=== PATIENT | female | born 1945 | race Caucasian/White ===

== ENCOUNTER 2019-02-07 12:44 | Emergency (ER) | payer OTHER ==
[2019-02-07 12:55] VITALS: BMI 28.3
--- NOTE | 2019-02-07 13:00 | PDOC ---
History of Present Illness - General Chief Complaint: Injury Stated Complaint: FALL Time Seen by Provider: 02/07/19 13:00 History Source: Patient Exam Limitations: No Limitations - History of Present Illness Initial Comments: 02/07/19 13:22 73 year old female with no PMH presented to ED for laceration to head after fall today. She stated she was sitting in a chair reading a bill, when her chair gave out and she fell backwards, hitting her head. She denied LOC, vomiting. She stated she got herself off of the ground. She stated she came to the ED because she could not stop the bleeding. She denied numbness, weakness, tingling, chest pain, shortness of breath, palpitations, visual changes or any other complaints. Allergies: NKDA Last tetanus unknown. Past History - Past Medical History Allergies/Adverse Reactions: Allergies Allergy/AdvReac Type Severity Reaction Status Date / Time No Known Allergies Allergy Verified 02/07/19 12:55 COPD: No - Suicide/Smoking/Psychosocial Hx Smoking History: Unknown if ever smoked Have you smoked in the past 12 months: No Information on smoking cessation initiated: No Hx Alcohol Use: No Drug/Substance Use Hx: No Review of Systems - Review of Systems Able to Perform ROS?: Yes Comments:: 02/07/19 13:23 General: denied fever, chills, generalized weakness. HEENT: denied sore throat, rhinorrhea, ear pain. Heart: denied chest pain, palpitations, syncope, diaphoresis. Respiratory: denied shortness of breath, cough, sputum production, hemoptysis. Abdomen: denied abdominal pain, nausea, vomiting, diarrhea, constipation, blood in stool. : denied dysuria, increased urinary frequency, hematuria, urinary incontinence , flank pain. Back: denied back pain. Musculoskeletal: denied joint pain, muscle pain, joint swelling. Neurological: admitted to headache. denied dizziness, numbness, tingling, weakness. Skin: admitted to laceration. denied rash, abrasion. *Physical Exam - Vital Signs Last Vital Signs Temp Pulse Resp BP Pulse Ox 98.0 F 84 16 168/92 100 02/07/19 12:52 02/07/19 12:52 02/07/19 12:52 02/07/19 12:52 02/07/19 12:52 - Physical Exam Comments: 02/07/19 13:24 Constitutional: Well-nourished, Well-developed, appearing stated age. pt was initially standing when I first entered the room. HEENT: head is normocephalic. hematoma to right parietal area with 1 cm lac with pulsatile blood flow. EOMI. PERRLA. Neck: supple. Full ROM. no midline C-spine tenderness to palpation. no paraspinal tenderness to palpation. Heart: regular rhythm. no murmurs, rubs or gallops. Lungs: clear to auscultation bilaterally. no crackles, rhonchi or wheezing. no stridor. Abdomen: soft, nontender. normal bowel sounds. no rebound, guarding, masses. Extremities: peripheral pulses intact. no lower extremity edema. Back: no midline t-spine or L-spine tenderness to palpation or step offs. no paraspinal tenderness. no low back tenderness. Hips: lower extremities equal in length, no hip tenderness bilaterally, no external rotation bilaterally. normal gait. Neurological: alert. oriented x3. CN2-12 intact. 5/5 strength all extremities. normal ankle plantar flexion. full sensation all extremities and bilateral face. no ataxia. gait normal. Psych: awake, alert, oriented x3. follows commands. answers questions appropriately. Procedures - Laceration/Wound Repair Head Wound Length: to 2.5 cm Wound Explored: clean Wound's Depth, Shape: superficial Irrigated w/ Saline: Yes Betadine Prep: No Wound Repaired With: [place] Number of Sutures: 3 Sterile Dressing Applied: Yes (bacitracin over wound, gauze over top, alice wrap to hold gauze in place) ED Treatment Course - LABORATORY CBC & Chemistry Diagram: 02/07/19 13:00 02/07/19 13:00 Medical Decision Making - Medical Decision Making 02/07/19 13:28 73 year old female with no PMH presented to ED for laceration of right parietal head with hematoma s/p mechanical fall. Pt was seen at urgent care and sent to ED. Initial Vital Signs Temp Pulse Resp BP Pulse Ox 98.0 F 84 16 168/92 100 02/07/19 12:52 02/07/19 12:52 02/07/19 12:52 02/07/19 12:52 02/07/19 12:52 Afebrile. No tachycardia. No tachypnea. Mild hypertension. No hypoxia on room air. Labs ordered: CBC, CMP, MAg, Troponin, UA/UC Imaging ordered: CT head, CT cervical spine Medications ordered: Tylenol IV EKG performed at 02/07/19 13:32 CBC WBC 6.7 K/mm3 (4.0-10.0) 02/07/19 13:00 RBC 5.24 M/mm3 (3.60-5.2) H 02/07/19 13:00 Hgb 14.7 GM/dL (10.7-15.3) 02/07/19 13:00 Hct 44.1 % (32.4-45.2) 02/07/19 13:00 MCV 84.2 fl (80-96) 02/07/19 13:00 MCH 28.0 pg (25.7-33.7) 02/07/19 13:00 MCHC 33.3 g/dl (32.0-36.0) 02/07/19 13:00 RDW 13.5 % (11.6-15.6) 02/07/19 13:00 Plt Count 221 K/MM3 (134-434) 02/07/19 13:00 MPV 8.4 fl (7.5-11.1) 02/07/19 13:00 Absolute Neuts (auto) 4.2 K/mm3 (1.5-8.0) 02/07/19 13:00 Neutrophils % 62.8 % (42.8-82.8) 02/07/19 13:00 Lymphocytes % 28.7 % (8-40) 02/07/19 13:00 Monocytes % 7.6 % (3.8-10.2) 02/07/19 13:00 Eosinophils % 0.5 % (0-4.5) 02/07/19 13:00 Basophils % 0.4 % (0-2.0) 02/07/19 13:00 Nucleated RBC % 0 % (0-0) 02/07/19 13:00 No leukocytosis. No anemia. 02/07/19 13:54 Urine Test Results Urine Color Yellow 02/07/19 13:00 Urine Appearance Clear 02/07/19 13:00 Urine pH 6.0 (5.0-8.0) 02/07/19 13:00 Ur Specific [place] 1.012 (1.010-1.035) 02/07/19 13:00 Urine Protein Negative (NEGATIVE) 02/07/19 13:00 Urine Glucose (UA) Negative (NEGATIVE) 02/07/19 13:00 Urine Ketones Negative (NEGATIVE) 02/07/19 13:00 Urine Blood Negative (NEGATIVE) 02/07/19 13:00 Urine Nitrite Negative (NEGATIVE) 02/07/19 13:00 Urine Bilirubin Negative (NEGATIVE) 02/07/19 13:00 Ur Leukocyte Esterase Negative (NEGATIVE) 02/07/19 13:00 Negative for UTI. 02/07/19 14:53 CMP Sodium 139 mmol/L (136-145) 02/07/19 13:00 Potassium 3.9 mmol/L (3.5-5.1) 02/07/19 13:00 Chloride 105 mmol/L (98-107) 02/07/19 13:00 Carbon Dioxide 29 mmol/L (21-32) 02/07/19 13:00 Anion Gap 6 MMOL/L (8-16) L 02/07/19 13:00 BUN 18 mg/dL (7-18) 02/07/19 13:00 Creatinine 0.8 mg/dL (0.55-1.3) 02/07/19 13:00 Creat Clearance w eGFR 70.31 (>60) 02/07/19 13:00 Random Glucose 107 mg/dL (74-106) H 02/07/19 13:00 Calcium 9.0 mg/dL (8.5-10.1) 02/07/19 13:00 Magnesium 2.2 mg/dL (1.8-2.4) 02/07/19 13:00 Total Bilirubin 0.3 mg/dL (0.2-1) 02/07/19 13:00 AST 20 U/L (15-37) 02/07/19 13:00 ALT 18 U/L (13-61) 02/07/19 13:00 Alkaline Phosphatase 93 U/L (45-117) 02/07/19 13:00 Troponin I 0.02 ng/ml (0.00-0.05) 02/07/19 13:00 Total Protein 7.2 g/dl (6.4-8.2) 02/07/19 13:00 Albumin 3.9 g/dl (3.4-5.0) 02/07/19 13:00 No electrolyte abnormalities. No ALTAF. No transaminitis. Normal troponin. CT cervical spine report: degenerative changes. no fracture/subluxation. CT head noncontrast report: mild volume loss. ventricular dilation. no mass lesion, gross acute infarct, or intracranial hemorrhage. no shift of hte midline structures. CXR report: no acute pathology 02/07/19 15:51 Wound was repaired with 3 ashwin after irrigation with sterile water under pressure. Pt tolerated the procedure well. Wound was covered with bacitracin, gauze, alice wrap. See procedure note. Tetanus shot given. Pt neurologically intact, alert and oriented x3, and is requesting to go home. Pt stated she will have someone stay with her tonight to check on her every 3-4 hours. Pt informed to follow up with PCP and return for wound check in 7 days. Pt informed of return precautions. Pt discharged. *DC/Admit/Observation/Transfer Diagnosis at time of Disposition: Fall, Scalp laceration, Head injury - Discharge Dispostion Disposition: HOME Condition at time of disposition: Improved Decision to Admit order: No - Referrals Referrals: Ki Cook [Primary Care Provider] - - Patient Instructions Printed Discharge Instructions: DI for Laceration Repair, DI for Closed Head Injury Additional Instructions: You were seen today for a fall. Your lab work was normal. Your urine analysis was normal, there was no urinary tract infection. Your Head CT was normal, there was no bleeding in the brain. Your Neck CT was normal, there was no fractures. Your Chest X-ray was normal. Keep the wound 100% clean and dry for 24-48 hours. Wear a shower cap when you shower. After that period change the dressing daily" apply bacitracin or neosporin and then cover with gauze and an alice wrap to hold the gauze in place. Take Tylenol over the counter for your pain. Take as advised on label. Follow up with your primary care doctor in 1-2 days. Bring all paperwork given to you today to your appointment. Follow up with your primary care doctor or in our Emergency Department (either here or at [facility]) for a wound check in 7-10 days. Have someone stay with you tonight to check on you every 3-4 hours. Signs they should be looking for are: difficulty to arouse, vomiting, weakness, numbness, tingling. Return to the Emergency Department for fever, vomiting, weakness, numbness, tingling, change in mental status, neck stiffness, chest pain, shortness of breath, changes to your vision, or any other new, worsening or concerning symptoms. - Post Discharge Activity
[2019-02-07] MEDS ORDERED: ACETAMINOPHEN 1000 MG/100 ML VIAL (NON FORMULARY) IVPB ONE (13:06)
[2019-02-07] MEDS ORDERED: ACETAMINOPHEN INJECTION 100 ML IVPB ONE (13:16)
[2019-02-07 13:26] LABS: BASO % 0.4 % (0-2.0); EOS % 0.5 % (0-4.5); HEMATOCRIT 44.1 % (32.4-45.2); HEMOGLOBIN 14.7 GM/dL (10.7-15.3); LYMPH % 28.7 % (8-40); MCHC 33.3 g/dl (32.0-36.0); MEAN CELL VOLUME 84.2 fl (80-96); MEAN PLT VOLUME 8.4 fl (7.5-11.1); MONO % 7.6 % (3.8-10.2); NEUT % 62.8 % (42.8-82.8); PLATELET COUNT 221 K/MM3 (134-434); RBC 5.24 M/mm3 (3.60-5.2); RDW 13.5 % (11.6-15.6); WHITE BLOOD COUNT 6.7 K/mm3 (4.0-10.0)
[2019-02-07 13:35] LABS: URINE APPEARANCE CLEAR; URINE BILIRUBIN NEGATIVE (NEGATIVE); URINE COLOR YELLOW; URINE GLUCOSE (UA) NEGATIVE (NEGATIVE); URINE KETONE NEGATIVE (NEGATIVE); URINE LEUK ESTERASE NEGATIVE (NEGATIVE); URINE NITRITE NEGATIVE (NEGATIVE); URINE PROTEIN NEGATIVE (NEGATIVE); URINE UROBILINOGEN 0.2 mg/dL (0.2-1.0)
[2019-02-07 13:39] LABS: INR 1.04 (0.83-1.09); PROTHROMBIN TIME (PATIENT) 12.3 SEC (9.7-13.0)
[2019-02-07 13:41] LABS: ACTIVATED PTT 36.7 SECONDS (25.2-36.5)
[2019-02-07 14:16] LABS: ALBUMIN 3.9 g/dl (3.4-5.0); ALK PHOS 93 U/L (45-117); ANION GAP 6 MMOL/L (8-16); BILIRUBIN,TOTAL 0.3 mg/dL (0.2-1); BLOOD UREA NITROGEN 18 mg/dL (7-18); CHLORIDE 105 mmol/L (98-107); CO2 29 mmol/L (21-32); CREATININE 0.8 mg/dL (0.55-1.3); GLUCOSE,RANDOM 107 mg/dL (74-106); MAGNESIUM 2.2 mg/dL (1.8-2.4); POTASSIUM 3.9 mmol/L (3.5-5.1); SGOT/AST 20 U/L (15-37); SGPT/ALT 18 U/L (13-61); SODIUM 139 mmol/L (136-145); TOT PROT 7.2 g/dl (6.4-8.2)
--- NOTE | 2019-02-07 15:04 | EKG ---
Test Reason : Blood Pressure : / mmHG Vent. Rate : 070 BPM Atrial Rate : 070 BPM P-R Int : 144 ms QRS Dur : 078 ms QT Int : 394 ms P-R-T Axes : 023 -12 044 degrees QTc Int : 425 ms POOR DATA QUALITY, INTERPRETATION MAY BE ADVERSELY AFFECTED NORMAL SINUS RHYTHM CANNOT RULE OUT ANTERIOR INFARCT , AGE UNDETERMINED ABNORMAL ECG NO PREVIOUS ECGS AVAILABLE Confirmed by Ortega Villegas ([id number]) on 02/07/2019 3:03:36 PM Referred By: Confirmed By:Ortega Villegas
[2019-02-07] MEDS ORDERED: DIPHTH,PERTUSS(ACELL),TET 0.5 ML DISP.SYRIN IM ONE ×2 (15:53→16:05)
--- NOTE | 2019-02-07 16:06 | PDOC ---
Documentation entered by So Dempsey SCRIBE, acting as scribe for Kevin Cho MD. Attending Attestation - Resident Resident Name: Destiny Malhotra - ED Attending Attestation I have performed the following: I have examined & evaluated the patient, The case was reviewed & discussed with the resident, I agree w/resident's findings & plan, Exceptions are as noted - HPI HPI: 02/07/19 15:45 The patient is a 73 year old female with no significant past medical history who presents to the emergency department with a head injury s/p fall earlier today. The patient reports that she as at an urgent care facility earlier today , sitting in a chair when the chair gave out from underneath her and she fell back. The patient reports hitting the back of her head. She reports some associated bleeding that wasn't able to be controlled. She denies any loc. She denies any headache, dizziness, or lightheadedness. The patient denies any fever , chills, nausea, vomiting, diarrhea, or urinary symptoms. The patient denies any other complaints. - Physicial Exam PE: 02/07/19 15:45 Vitals: Triage vital signs reviewed General Appearance: No acute distress, well nourished, well developed Head: Atraumatic Throat: Posterior oropharynx without erythema, mucous membranes moist Neck: Supple; No nuchal rigidity Chest Wall: Nontender Cardiac: Regular rate and rhythm, no murmurs, no rubs, no gallops Lungs: Clear to auscultation bilateral, good air movement bilaterally Abdomen: Soft, nondistended, normal bowel sounds, nontender to palpation Extremities: Full range of motion to all extremities, no cyanosis, clubbing, or edema Skin: Warm and dry, no rashes or lesions, no rash, no petechiae Neuro: AOX3; Cranial Nerves 2-12 grossly intact, Strength intact to all extremities, Sensation intact to all extremities, gait normal Psych: Normal mood, normal affect - Medical Decision Making 02/07/19 16:06 Well-appearing no apparent distress mechanical fall with subsequent laceration to occiput Thoroughly irrigated and approximated with ashwin Normal neurologic examination patient will have a friend stay with her tonight Findings, the need for follow-up and strict return instructions discussed patient. Kevin Cho MD: This documentation has been prepared by the felipeKe pathak Collisia, SCRIBE, under my direction and personally reviewed by me in its entirety. I confirm that the documentation accurately reflects all work, treatment, procedures, and medical decision making performed by me.
[2019-02-07 16:20] VITALS: BP 155/81; PULSE 80; TEMP 97.9
== END 2019-02-07 16:21 | disposition home or self-care (01) ==
LOC: JER 12:44
PROC: 3E0234Z Introduction of Serum, Toxoid and Vaccine into Muscle, Percutaneous Approach (ICD-10-PCS; principal; 2019-02-07)
PROC: 3E033NZ Introduction of Analgesics, Hypnotics, Sedatives into Peripheral Vein, Percutaneous Approach (ICD-10-PCS; 2019-02-07)
PROC: 0HQ0XZZ Repair Scalp Skin, External Approach (ICD-10-PCS; 2019-02-07)
DX: S01.01XA Laceration without foreign body of scalp, initial encounter (principal); W07.XXXA Fall from chair, initial encounter; Y93.89 Activity, other specified; Y92.018 Other place in single-family (private) house as the place of occurrence of the external cause; Y99.8 Other external cause status
CPT/HCPCS: 12001-25; 36415; 70450-TC; 71046-TC-FY; 72125-TC; 80053; 81003; 83735; 84484; 85025; 85610; 85730; 87086; 90471; 90715; 93005; 93010; 96374; 99283-25; J0131

== ENCOUNTER 2019-02-09 10:19 | Emergency (ER) | payer OTHER ==
[2019-02-09 10:28] VITALS: BP 127/59; PULSE 77; TEMP 97.8; BMI 30.2
--- NOTE | 2019-02-09 10:51 | PDOC ---
Suture Removal/Wound Check HPI - History of Present Illness Chief Complaint: Revisit,Wound Recheck Stated Complaint: wound check Time Seen by Provider: 02/09/19 10:26 History Source: Yes: Patient Exam Limitations: Yes: No Limitations Treated at: [facility] ED - Previous ED Treatment Type of procedure performed on last visit: Yes: Laceration Repair Tetanus Immunization: Yes: Up to Date Antibiotics Prescribed: No - Onset of Previous Treatment Comment:: 02/09/19 10:50 Patient came to emergency department for evaluation of scalp laceration and multiple contusions sustained 2 days ago. has had no problems with the staple repair, is filled mildly tired but no other consequence of her head injury. Past History - Travel Traveled outside of the country in the last 30 days: No Close contact w/someone who was outside of country & ill: No - Past Medical History Allergies/Adverse Reactions: Allergies Allergy/AdvReac Type Severity Reaction Status Date / Time No Known Allergies Allergy Verified 02/07/19 12:55 Home Medications: Ambulatory Orders NK [No Known Home Medication] 02/09/19 COPD: No Disorders: No Kidney Stones: No - Surgical History GI Surgery: No - Immunization History Immunization Up to Date: No - Suicide/Smoking/Psychosocial Hx Smoking History: Never smoked Have you smoked in the past 12 months: No Information on smoking cessation initiated: No Hx Alcohol Use: No Drug/Substance Use Hx: No Suture Removal/Wound Check PE - Physical Exam Laceration/Wound Check Symptoms: reports: None. denies: Pain, Fever, Discharge , Bleeding Current Severity Level: None Maximum Severity Level: None Pain Localization: None Location of Laceration/Wound: left: Head (left occipital 3 ashwin intact with some scabbing at the area. No weeping or bleeding noted) *Review of Systems - Review of Systems Able to Perform ROS?: Yes Constitutional: Yes: See HPI. No: Symptoms Reported, Fever, Malaise HEENTM: No: Symptoms Reported Respiratory: No: Symptoms reported Integumentary: Yes: See HPI. No: Symptoms Reported, Bruising All Other Systems: Reviewed and Negative *Physical Exam - Vital Signs Last Vital Signs Temp Pulse Resp BP Pulse Ox 97.8 F 77 16 127/59 L 100 02/09/19 10:23 02/09/19 10:23 02/09/19 10:23 02/09/19 10:23 02/09/19 10:23 - Physical Exam General Appearance: Yes: Nourished, Appropriately Dressed. No: Apparent Distress HEENT: positive: MERI, Normal ENT Inspection, TMs Normal, Pharynx Normal Neck: positive: Supple. negative: Tender Respiratory/Chest: positive: Lungs Clear Gastrointestinal/Abdominal: positive: Soft Extremity: positive: Normal Inspection Integumentary: positive: Normal Color Neurologic: positive: clin application specialist II-XII NML intact, Fully Oriented, Alert, Normal Mood/ Affect, Normal Response, Motor Strength 5/5 *DC/Admit/Observation/Transfer Diagnosis at time of Disposition: Visit for wound check - Discharge Dispostion Disposition: HOME Condition at time of disposition: Stable Decision to Admit order: No - Referrals - Patient Instructions Printed Discharge Instructions: DI for Laceration Repair -- [place] Additional Instructions: Rest, no exercise or gym until ashwin are removed May use ice packs tonight as needed for swelling and pain Put a towel over pillow/old pillowcase to avoid damage from bacitracin and bleeding to linens until ashwin removed Use antibiotic cream/ointment once in the morning once at night until ashwin are removed May use Tylenol or Motrin for pain relief Return to emergency department for worsening pain, swelling, bleeding, or evidence of serious head injury Staple removal in 5-7 days - Post Discharge Activity
== END 2019-02-09 10:51 | disposition home or self-care (01) ==
LOC: JERFT 10:19
DX: Z48.817 Encounter for surgical aftercare following surgery on the skin and subcutaneous tissue (principal)
CPT/HCPCS: 99281-25

== ENCOUNTER 2019-02-13 09:32 | Emergency (ER) | payer OTHER ==
[2019-02-13 09:53] VITALS: BP 154/59; PULSE 64; TEMP 97.8; BMI 27.4
--- NOTE | 2019-02-13 10:23 | PDOC ---
Suture Removal/Wound Check HPI - History of Present Illness Chief Complaint: Suture/Staple Removal(Here) Stated Complaint: Suture/Staple Removal(Here) Time Seen by Provider: 02/13/19 09:56 History Source: Yes: Patient Exam Limitations: Yes: No Limitations Treated at: [facility] ED - Previous ED Treatment Type of procedure performed on last visit: Yes: Laceration Repair Tetanus Immunization: Yes: Up to Date (ashwin) Past History - Travel Traveled outside of the country in the last 30 days: No Close contact w/someone who was outside of country & ill: No - Past Medical History Allergies/Adverse Reactions: Allergies Allergy/AdvReac Type Severity Reaction Status Date / Time No Known Allergies Allergy Verified 02/13/19 09:51 Home Medications: Ambulatory Orders NK [No Known Home Medication] 02/09/19 COPD: No Disorders: No Kidney Stones: No - Surgical History GI Surgery: No - Immunization History Immunization Up to Date: No - Suicide/Smoking/Psychosocial Hx Smoking History: Never smoked Have you smoked in the past 12 months: No Hx Alcohol Use: No Drug/Substance Use Hx: No Suture Removal/Wound Check PE - Physical Exam Laceration/Wound Check Symptoms: reports: Improved (mild gapping of the healing laceration, scab present) Current Severity Level: None Maximum Severity Level: None Pain Localization: None Location of Laceration/Wound: right: Head (posterior scalp, [address]) Comments: 02/13/19 10:19 GENERAL: The patient is awake, alert, and fully oriented, in no acute distress. HEAD: Normcephalic. Three [address] in place to the R posterior scalp with associated hematoma. Mild gapping of the wound with associated scab. EYES: Pupils equal, round and reactive to light, extraocular movements intact, sclera anicteric, conjunctiva clear. EXTREMITIES: Normal range of motion, no edema. NEUROLOGICAL: Normal speech, normal gait. PSYCH: Normal mood, normal affect. SKIN: Warm, Dry, normal turgor, no rashes or lesions noted. *Review of Systems - Review of Systems Constitutional: No: Chills, Fever, Weakness Integumentary: Yes: Lumps (hematoma), Other (ashwin in place). No: Erythema *Physical Exam - Vital Signs Last Vital Signs Temp Pulse Resp BP Pulse Ox 97.8 F 64 17 154/59 L 96 02/13/19 09:51 02/13/19 09:51 02/13/19 09:51 02/13/19 09:51 02/13/19 09:51 Medical Decision Making - Medical Decision Making 02/13/19 10:21 Patient is a 73-year-old female who presents to the ER today have her ashwin removed. Patient states that she slipped and fell 5 days ago. Just states there is associated bump under the ashwin. She denies drainage from the site. Denies lightheadedness, weakness, fevers, chills and dizziness. A/P: Staple removal On exam patient with right scalp wound. [address] Mild gapping of the wound with associated scabbing. Ashwin not keeping the wound together at this point. We'll remove them. No secondary signs of infection Bacitracin applied Patient instructed to use a warm compress to help with the hematoma. Discharge home I discussed the physical exam findings, ancillary test results and final diagnoses with the patient. I answered all of the patient's questions. The patient was satisfied with the care received and felt comfortable with the discharge plan and treatment plan. The Patient agrees to follow up with the primary care physician/specialist within 24-72 hours. Return precautions were given. *DC/Admit/Observation/Transfer Diagnosis at time of Disposition: Removal of ashwin - Discharge Dispostion Disposition: HOME Condition at time of disposition: Stable Decision to Admit order: No - Referrals Referrals: Kishan Aguilar MD [Staff Physician] - - Patient Instructions Printed Discharge Instructions: DI for Suture Removal Additional Instructions: You had your sutures/ashwin removed today. Please use bacitracin on the site for the next week. Avoid soaking the area with water for 1 more week as to what the wound fully heal. You may apply warm compresses to the area to help with the hematoma. Follow-up with her primary care doctor as needed Return to the emergency department if you develop fevers, drainage from the site , increased pain, or have any changes in your symptoms. - Post Discharge Activity Forms/Work/School Notes: Back to Work
== END 2019-02-13 10:34 | disposition home or self-care (01) ==
LOC: JERFT 09:32
DX: Z48.817 Encounter for surgical aftercare following surgery on the skin and subcutaneous tissue (principal); Z48.02 Encounter for removal of sutures
CPT/HCPCS: 99281-25

== ENCOUNTER 2019-06-29 20:22 | Inpatient (IN) | payer OTHER, BC ==
--- NOTE | 2019-06-29 20:36 | PDOC ---
Rapid Medical Evaluation Time Seen by Provider: 06/29/19 20:33 Medical Evaluation: Allergies Allergy/AdvReac Type Severity Reaction Status Date / Time No Known Allergies Allergy Verified 02/13/19 09:51 06/29/19 20:33 I have performed a brief in-person evaluation of this patient. The patient presents with a chief complaint of: right hand swelling x2 days Pertinent physical exam findings: erythema and swelling starting at right hand near MTP of 3rd and 4th digits with lymphangitis present to right forearm I have ordered the following: labs, urine The patient will proceed to the ED for further evaluation. Discharge Disposition - Diagnosis Cellulitis - Referrals - Patient Instructions - Post Discharge Activity
[2019-06-29 20:39] VITALS: BMI 27.4
--- NOTE | 2019-06-29 20:48 | PDOC ---
History of Present Illness - General Chief Complaint: Wound Stated Complaint: SWOLLEN HAND Time Seen by Provider: 06/29/19 20:33 History Source: Patient Exam Limitations: No Limitations - History of Present Illness Initial Comments: Alexa Pardo is a 73 yo F who denies having any pmh presents to the [facility] er via private auto with 2 days of right hand and finger swelling, redness, and pain. Patient states she does a significant amount of gardening around her house and 3 days ago she pricked her right pointer finger then her fingers started to swell, become red and painful, and she felt like she had the chills today. Patient states the redness and swelling have been increasing gradually every day since she pricked herself. Patient says she is able to use her hand normally it is just mildly painful. Denies any numbness, tingling, or sensory differences. Last Tetanus: 02/10 PCP: Jeff Holley PSH: None reported Social Hx: Denies smoking, drinking, or other substance usage. Allergies: NKDA, NKA Past History - Past Medical History Allergies/Adverse Reactions: Allergies Allergy/AdvReac Type Severity Reaction Status Date / Time No Known Allergies Allergy Verified 06/30/19 00:55 Home Medications: Ambulatory Orders NK [No Known Home Medication] 02/09/19 COPD: No Disorders: No Kidney Stones: No - Surgical History GI Surgery: No - Immunization History Immunization Up to Date: No - Suicide/Smoking/Psychosocial Hx Smoking History: Never smoked Have you smoked in the past 12 months: No Hx Alcohol Use: No Drug/Substance Use Hx: No Review of Systems - Review of Systems Able to Perform ROS?: Yes Comments:: CONSTITUTIONAL: Present: Chills Absent: fever, no fatigue EYES: Absent: visual changes ENT: Absent: ear pain, no sore throat CARDIOVASCULAR: Absent: chest pain, no palpitations RESPIRATORY: Absent: cough, no SOB GI: Absent: abdominal pain, no nausea, no vomiting, no constipation, no diarrhea GENITOURINARY: Absent: dysuria, no frequency, no hematuria MUSKULOSKELETAL: Present: Arthralgia Absent: back pain, no myalgia SKIN: Present: rash NEURO: Absent: headache *Physical Exam - Vital Signs Last Vital Signs Temp Pulse Resp BP Pulse Ox 98.9 F 92 H 16 150/64 99 06/29/19 20:35 06/29/19 20:35 06/29/19 20:35 06/29/19 20:35 06/29/19 20:35 - Physical Exam Comments: GENERAL: Well-appearing, well-nourished. No apparent distress. HEENT: Normocephalic, atraumatic. PERRL, EOM intact. CARDIOVASCULAR: Normal S1, S2. Regular rate and rhythm. PULMONARY: No evidence of respiratory distress. Lungs clear to auscultation bilaterally. No wheezing, rales or rhonchi. ABDOMEN: Soft, non-distended, non-tender. RIGHT HAND: There is significant swelling and erythema on the first 3 digits on the right hand. There is also significant TTP over the erythema. 2+ radial and ulnar pulses. 5/5 sensation and strength. EXTREMITIES: Normal ROM in other 3 extremities. No gross deformities. SKIN: Hand rash as described above. Warm, dry. NEUROLOGICAL: No focal neurological deficits. ED Treatment Course - LABORATORY CBC & Chemistry Diagram: 06/29/19 21:04 06/29/19 21:04 Medical Decision Making - Medical Decision Making Alexa Pardo is a 73 yo F who denies having any pmh presents to the [facility] er via private auto with 2 days of right hand and finger swelling, redness, and pain. Patient states she does a significant amount of gardening around her house and 3 days ago she pricked her right pointer finger then her fingers started to swell, become red and painful, and she felt like she had the chills today. Patient states the redness and swelling have been increasing gradually every day since she pricked herself. Patient says she is able to use her hand normally it is just mildly painful. Denies any numbness, tingling, or sensory differences. Vital Signs Temp Pulse Resp BP Pulse Ox 98.9 F 92 H 16 150/64 99 06/29/19 20:35 06/29/19 20:35 06/29/19 20:35 06/29/19 20:35 06/29/19 20:35 MDM: Patient presents with right hand/finger swelling after a gardening incident concerning for a hand/finger cellulitic infection. Plan: Labs, Urine, cultures, analgesics, IV hdyration, Abx, Re-assess. Labs: Unremarkable Re-assessment: Patient is concerned her hand infection will worsen. We will admit the patient for IV Abx, hand consult, and analgesia. Disposition: Admit to hospital to monitor spread of infection and make sure the lymphangitis doesn't become flexor tenosynovitis *DC/Admit/Observation/Transfer Diagnosis at time of Disposition: Lymphangitis Cellulitis Qualifiers: Site of cellulitis: extremity Site of cellulitis of extremity: upper extremity Laterality: right Qualified Code(s): L03.113 - Cellulitis of right upper limb - Discharge Dispostion Condition at time of disposition: Stable Decision to Admit order: Yes - Referrals - Patient Instructions - Post Discharge Activity
[2019-06-29] MEDS ORDERED: SODIUM CHLORIDE 0.9% 500 ML INFUS.BAG IV ONE (21:00)
[2019-06-29] MEDS ORDERED: ACETAMINOPHEN 325 MG TABLET (FP) PO ONE (21:00)
[2019-06-29] MEDS ORDERED: ACETAMINOPHEN 325 MG TABLET (FP) ONE (21:25)
[2019-06-29 21:29] LABS: BASO % 0.2 % (0-2.0); EOS % 0.3 % (0-4.5); HEMATOCRIT 44.1 % (32.4-45.2); HEMOGLOBIN 14.5 GM/dL (10.7-15.3); LYMPH % 15.7 % (8-40); MCH 27.4 pg (25.7-33.7); MCHC 32.8 g/dl (32.0-36.0); MEAN CELL VOLUME 83.7 fl (80-96); MEAN PLT VOLUME 8.4 fl (7.5-11.1); MONO % 11.4 % (3.8-10.2); NEUT % 72.4 % (42.8-82.8); PLATELET COUNT 228 K/MM3 (134-434); RBC 5.27 M/mm3 (3.60-5.2); RDW 13.5 % (11.6-15.6); WHITE BLOOD COUNT 10.4 K/mm3 (4.0-10.0)
[2019-06-29 21:56] LABS: ALBUMIN 4.1 g/dl (3.4-5.0); BILIRUBIN,TOTAL 0.5 mg/dL (0.2-1); BLOOD UREA NITROGEN 15.7 mg/dL (7-18); CALCIUM 9.2 mg/dL (8.5-10.1); CREATININE 0.8 mg/dL (0.55-1.3); MAGNESIUM 2.5 mg/dL (1.8-2.4); PHOSPHOROUS 3.1 mg/dL (2.5-4.9); POTASSIUM 4.1 mmol/L (3.5-5.1); TOT PROT 7.6 g/dl (6.4-8.2)
[2019-06-29] MEDS ORDERED: VANCOMYCIN 1,000 MG in DEXTROSE 5%-WATER - 250 ML IVPB ONE (21:59)
[2019-06-29] MEDS ORDERED: SODIUM CHLORIDE 2,041 ML IV ONE (22:13)
[2019-06-29] MEDS ORDERED: CEFTRIAXONE 1,000 MG in DEXTROSE 5%-WATER - 50 ML IVPB ONE (22:14)
--- NOTE | 2019-06-29 22:40 | PDOC ---
Documentation entered by Padmini Lee SCRIBE, acting as scribe for Padmaja Montalvo DO. Padmaja Montalvo, DO: This documentation has been prepared by the Rosa garza Xhesika, SCRIBE, under my direction and personally reviewed by me in its entirety. I confirm that the documentation accurately reflects all work, treatment, procedures, and medical decision making performed by me. Attending Attestation - Resident Resident Name: Rudy Luis - ED Attending Attestation I have performed the following: I have examined & evaluated the patient, The case was reviewed & discussed with the resident, I agree w/resident's findings & plan, Exceptions are as noted - HPI HPI: 06/29/19 22:07 The patient is a 73 year old female with no significant PMH who presents to the emergency department for 2 days of R hand and finger edema, erythema and pain associated with chills. Patient states she gardens and 3 days ago she pricked her R index finger and suddenly after her fingers started to swell, became red and painful. Patient states her last tetanus was 02/10. The patient denies chest pain, shortness of breath, headache and dizziness. Denies fever, cough, nausea, vomiting, diarrhea and constipation. Denies dysuria , frequency, urgency and hematuria. Allergies: NKDA, NKA PCP: Dr. Jeff Holley - Physicial Exam PE: 06/29/19 22:21 Gen: aaox3, nad heart: +s1s2 reg lungs: cta b/l abd: soft, nt/nd +bs ext: no c/c/e, R hand (RHD) with redness, swelling, warmth, ttp over 1st and 2nd digit- across the palm and dorsum of the hand and lymphangitic spread up the arm to the elbow, no ttp over the flexor synovitis or worsening pain with passive rom - Medical Decision Making 06/29/19 22:23 a/p: 73yo female with hand cellulitis -wound from gardening 3 days ago -redness, swelling -no clinical signs at this time of flexor tenosynovitis -concern for hand cellulitis -will start abx, labs sent -will place hand consult for tomorrow -pt will need admission for iv abx -lymphangitic spread of the cellulitis 06/29/19 22:39 resident discussed the case with amy who accepts pt to service 06/29/19 22:40 wbc 10
[2019-06-29] MEDS ORDERED: VANCOMYCIN 1 GRAM (PRE-DOCKED) 1,000 MG/250 ML BAG IVPB ONE (22:42)
[2019-06-29] MEDS ORDERED: CEFTRIAXONE 1 GM/50 ML BAG ONE (22:43)
--- NOTE | 2019-06-30 01:52 | HP ---
CHIEF COMPLAINT:right hand wound PCP: HISTORY OF PRESENT ILLNESS: Patient is a 73 year old female with no significant past medical history presented to the ED for right 2nd finger swelling, pain and redness after a punctured wound 3 days ago. Patient reported she was gardening in her house when she pricked her 2nd finger. The next day, she noted her finger was swelling , with redness and pain surrounding the punctured wound. The patient reported worsening of the swelling, pain and redness, now extending to her forearm, and decided to go the ED. She denies any numbness, tingling of the right hand but has difficulty with hand computer operations analyst. Patient denies any fever, chills, headache, dizziness, chest pain, SOB, abdominal pain, diarrhea, urinary symptoms. ER course was notable for: (1)Vanc and ceftriaxone x1 (2) (3) Recent Travel: denies PAST MEDICAL HISTORY: none PAST SURGICAL HISTORY: none Social History: Smoking:denies Alcohol:denies Drugs: denies Family History: Allergies No Known Allergies Allergy (Verified 06/30/19 00:55) HOME MEDICATIONS: Home Medications Medication Instructions Recorded NK [No Known Home Medication] 02/09/19 REVIEW OF SYSTEMS CONSTITUTIONAL: Absent: fever, chills, diaphoresis, generalized weakness, malaise, loss of appetite, weight change HEENT: Absent: rhinorrhea, nasal congestion, throat pain, throat swelling, difficulty swallowing, mouth swelling, ear pain, eye pain, visual changes CARDIOVASCULAR: Absent: chest pain, syncope, palpitations, irregular heart rate, lightheadedness , peripheral edema RESPIRATORY: Absent: cough, shortness of breath, dyspnea with exertion, orthopnea, wheezing, stridor, hemoptysis GASTROINTESTINAL: Absent: abdominal pain, abdominal distension, nausea, vomiting, diarrhea, constipation, melena, hematochezia GENITOURINARY: Absent: dysuria, frequency, urgency, hesitancy, hematuria, flank pain, genital pain MUSCULOSKELETAL: Absent: myalgia, arthralgia, joint swelling, back pain, neck pain SKIN: Absent: rash, itching, pallor HEMATOLOGIC/IMMUNOLOGIC: Absent: easy bleeding, easy bruising, lymphadenopathy, frequent infections ENDOCRINE: Absent: unexplained weight gain, unexplained weight loss, heat intolerance, cold intolerance NEUROLOGIC: Absent: headache, focal weakness or paresthesias, dizziness, unsteady gait, seizure, mental status changes, bladder or bowel incontinence PSYCHIATRIC: Absent: anxiety, depression, suicidal or homicidal ideation, hallucinations. PHYSICAL EXAMINATION Vital Signs - 24 hr 06/29/19 20:35 Temperature 98.9 F Pulse Rate 92 H Respiratory 16 Rate Blood Pressure 150/64 O2 Sat by Pulse 99 Oximetry (%) GENERAL: Awake, alert, and fully oriented, in no acute distress. HEAD: Normal with no signs of trauma. EYES:PERRLA, EOMI, sclera anicteric, conjunctiva clear. EARS, NOSE, THROAT: Moist mucous membranes. NECK: Normal range of motion, supple. LUNGS: Breath sounds equal, clear to auscultation bilaterally. HEART: Regular rate and rhythm, normal S1 and S2 without murmur, rub or gallop. ABDOMEN: Soft, nontender, not distended, normoactive bowel sounds. MUSCULOSKELETAL: Normal range of motion at all joints. UPPER EXTREMITIES: 2+ pulses, warm, well-perfused. No peripheral edema. RUE: + punctured wound at the right dorsal area with swelling of the 2nd finger and erythema extending from the 2nd finger to the dorsum of right hand. LOWER EXTREMITIES: 2+ pulses, warm, well-perfused. No peripheral edema. NEUROLOGICAL: Cranial nerves II-XII intact. Normal speech. Normal gait. PSYCHIATRIC: Cooperative. Good eye contact. Appropriate mood and affect. SKIN: Warm, dry, normal turgor. Laboratory Results - last 24 hr 06/29/19 06/29/19 21:04 21:04 WBC 10.4 H RBC 5.27 H Hgb 14.5 Hct 44.1 MCV 83.7 MCH 27.4 MCHC 32.8 RDW 13.5 Plt Count 228 MPV 8.4 Absolute Neuts (auto) 7.5 Neutrophils % 72.4 Lymphocytes % 15.7 D Monocytes % 11.4 H Eosinophils % 0.3 Basophils % 0.2 Nucleated RBC % 0 Sodium 136 Potassium 4.1 Chloride 102 Carbon Dioxide 29 Anion Gap 6 L BUN 15.7 Creatinine 0.8 Est GFR (CKD-EPI)AfAm 84.77 Est GFR (CKD-EPI)NonAf 73.14 Random Glucose 105 Calcium 9.2 Phosphorus 3.1 Magnesium 2.5 H Total Bilirubin 0.5 AST 26 ALT 20 Alkaline Phosphatase 89 Total Protein 7.6 Albumin 4.1 ASSESSMENT/PLAN: Patient is a 73 year old female with no significant past medical history presented to the ED for right 2nd finger swelling, pain and redness after a punctured wound 3 days ago. #Right hand cellulitis -rule out tenosynovitis, septic arthritis -blood cultures done -Iv vanc and ceftriaxone given at the ED -Xray of the right hand done, awaiting final read -Surgery (Dr. Russell) consulted. -ID (Dr. Figueroa) consulted. -will continue Vanc and ceftriaxone for now -ESR and CRP #FEN -Not on any standing fluids -electrolytes wnl, routine bmp monitoring -Regular diet #Prophylaxis -Lovenox 40mg sq daily #Disposition -full code -admit to med surg Visit type - Emergency Visit Emergency Visit: Yes ED Registration Date: 06/29/19 Care time: The patient presented to the Emergency Department on the above date and was hospitalized for further evaluation of their emergent condition. - New Patient This patient is new to me today: Yes Date on this admission: 06/29/19 - Critical Care Critical Care patient: No ATTENDING PHYSICIAN STATEMENT I saw and evaluated the patient. I reviewed the resident's note and discussed the case with the resident. I agree with the resident's findings and plan as documented. SUBJECTIVE: OBJECTIVE: ASSESSMENT AND PLAN:
--- NOTE | 2019-06-30 02:25 | PN ---
Teaching Attending Note Name of Resident: Josefina Marshall ATTENDING PHYSICIAN STATEMENT I saw and evaluated the patient. I reviewed the resident's note and discussed the case with the resident. I agree with the resident's findings and plan as documented. SUBJECTIVE: 73 year old female with no significant PMH presented after pricking her right index finger on mart[place] thorn 3 days ago when she was gardening and noticed worsening swelling since this incident. No significant fever or chills, however swelling has worsening quickly. No other trauma she can recall. First incidence. Applied topical abx without improvement. Also c/o incidental pain in nose OBJECTIVE: Last Vital Signs Temp Pulse Resp BP Pulse Ox 98.9 F 92 H 16 150/64 99 06/29/19 20:35 06/29/19 20:35 06/29/19 20:35 06/29/19 20:35 06/29/19 20:35 general -nontoxic heent -erythematous nose right hand - right 2nd, 3rd digits edematous, warm to touch, red streaking up forearm, radial pulse 2+, slightly decreased handgrip Abnormal Lab Results 06/29/19 06/29/19 21:04 21:04 WBC 10.4 H RBC 5.27 H Monocytes % 11.4 H Anion Gap 6 L Magnesium 2.5 H right hand xray reviewed- right index finger soft tissue swelling, bony cortices appear to be intact ASSESSMENT AND PLAN: right hand 2nd 3rd digit cellulitis, possible tenosynovitis. R/o septic arthritis. Rapid progression. Concerned for virulent bacterial organism. Group A strep? Possible sporothirchosis? -blood cultures x2 -esr, crp -vancomcyin, ceftriaxone given -hand surgery consult -consider arthrocentesis to r/o septic arthritis -ID consult
[2019-06-30 07:40] LABS: BASO % 0.3 % (0-2.0); EOS % 0.4 % (0-4.5); HEMATOCRIT 41.2 % (32.4-45.2); HEMOGLOBIN 13.6 GM/dL (10.7-15.3); LYMPH % 16.8 % (8-40); MCH 27.8 pg (25.7-33.7); MEAN CELL VOLUME 84.2 fl (80-96); MEAN PLT VOLUME 8.9 fl (7.5-11.1); MONO % 11.7 % (3.8-10.2); NEUT % 70.8 % (42.8-82.8); PLATELET COUNT 207 K/MM3 (134-434); RBC 4.89 M/mm3 (3.60-5.2); RDW 13.1 % (11.6-15.6); WHITE BLOOD COUNT 9.2 K/mm3 (4.0-10.0)
[2019-06-30 07:57] LABS: BLOOD UREA NITROGEN 11.8 mg/dL (7-18); CALCIUM 8.5 mg/dL (8.5-10.1); CREATININE 0.6 mg/dL (0.55-1.3); MAGNESIUM 2.4 mg/dL (1.8-2.4); PHOSPHOROUS 2.5 mg/dL (2.5-4.9); POTASSIUM 4.2 mmol/L (3.5-5.1)
[2019-06-30] MEDS ORDERED: VANCOMYCIN 1 GM in D5W (PRE-DOCKED) 1,000 MG/250 ML IVPB SCH (10:00)
[2019-06-30] MEDS ORDERED: CEFTRIAXONE 1 GM in DEXTROSE 5%-WATER - 50 ML IVPB SCH ×2 (10:00→14:00)
[2019-06-30] MEDS ORDERED: ENOXAPARIN NA (PORCINE) 40 MG/0.4 ML DISP.SYRIN SQ SCH (10:00)
[2019-06-30] MEDS ORDERED: cefTRIAXone SODIUM 1 GM VIAL ONE (10:46)
[2019-06-30] MEDS ORDERED: DEXTROSE 5%-WATER - 50 ML IVPB ONE ×3 (10:47→16:36)
[2019-06-30] MEDS: PNEUMOC 13-VAL CONJ-DIP CRM/PF 0.5 ML DISP.SYRIN IM ONE ×2 (10:58→11:36)
--- NOTE | 2019-06-30 12:09 | CON.ID ---
Consult Consult Specialty:: infectious diseases Referred by:: Josefina Reason for Consultation:: cellulitis of the rt hand - History of Present Illness Chief Complaint: swelling of the rt hand History of Present Illness: 73 year old female with no significant past medical history admitted for right 2nd finger swelling, pain and redness after a punctured wound 3 days ago. Patient reported she was gardening in her house when she pricked her 2nd finger. The next day, she noted her finger was swelling, with redness and pain surrounding the punctured wound. The patient reported worsening of the swelling , pain and redness, now extending to her forearm, and came to the hospital. She denies any numbness, tingling of the right hand but has difficulty with hand service tech. Patient denies any fever, chills, headache, dizziness, chest pain, SOB, abdominal pain, diarrhea, urinary symptoms. patient was started on ceftriaxone,mentions that there is very little improvement - History Source History Provided By: Patient Limitations to Obtaining History: No Limitations - Past Medical History ...: No - Alcohol/Substance Use Hx Alcohol Use: No - Smoking History Smoking history: Never smoked Have you smoked in the past 12 months: No Home Medications - Allergies Allergies/Adverse Reactions: Allergies Allergy/AdvReac Type Severity Reaction Status Date / Time No Known Allergies Allergy Verified 06/30/19 00:55 - Home Medications Home Medications: Ambulatory Orders NK [No Known Home Medication] 02/09/19 Review of Systems - Review of Systems Constitutional: reports: No Symptoms Eyes: reports: No Symptoms HENT: reports: No Symptoms Neck: reports: No Symptoms Cardiovascular: reports: No Symptoms Respiratory: reports: No Symptoms Gastrointestinal: reports: No Symptoms Genitourinary: reports: No Symptoms Musculoskeletal: reports: Other Integumentary: reports: Erythema, Wound, Other Neurological: reports: No Symptoms Endocrine: reports: No Symptoms Hematology/Lymphatic: reports: No Symptoms Psychiatric: reports: No Symptoms Physical Exam Vital Signs: Vital Signs Temperature 99.1 F 06/30/19 05:51 Pulse Rate 71 06/30/19 05:51 Respiratory Rate 20 06/30/19 05:51 Blood Pressure 112/59 L 06/30/19 05:51 O2 Sat by Pulse Oximetry (%) 99 06/29/19 20:35 Constitutional: Yes: Well Nourished, No Distress, Calm Eyes: Yes: Conjunctiva Clear Cardiovascular: Yes: Regular Rate and Rhythm Respiratory: Yes: Regular, CTA Bilaterally Gastrointestinal: Yes: Normal Bowel Sounds, Soft Musculoskeletal: Yes: WNL Extremities: Yes: Erythema (of the hand,prick of the finger site), Other Integumentary: Yes: Erythema (of the hand) Wound/Incision: Yes: Open to air Neurological: Yes: Alert, Oriented Labs: CBC, BMP 06/30/19 06:45 06/30/19 06:45 Assessment/Plan 73 year old female with no significant past medical history presented to the ED for right 2nd finger swelling, pain and redness after a punctured wound 3 days ago. Right hand cellulitis erythema of the hand swelling of the hand pain plan will switch abx to zoazam hand going to see the patient monitor swelling if it starts swelling will need further imaging and intervention
[2019-06-30] MEDS ORDERED: PIPERACILLIN/TAZOBACTAM 3.375 GM VIAL IVPB ONE ×2 (13:12→16:36)
[2019-06-30] MEDS: PIPERACILLIN/TAZOB 3.375 GM 3.375 GM in DEXTROSE 5%-WATER - 50 ML IVPB SCH ×2 (13:30→17:33)
--- NOTE | 2019-06-30 14:02 | EKG ---
Test Reason : Blood Pressure : / mmHG Vent. Rate : 067 BPM Atrial Rate : 067 BPM P-R Int : 156 ms QRS Dur : 090 ms QT Int : 400 ms P-R-T Axes : 052 001 053 degrees QTc Int : 422 ms NORMAL SINUS RHYTHM Confirmed by JENNIFER VALENTIN MD ([id number]) on 06/30/2019 2:02:26 PM Referred By: Confirmed By:JENNIFER VALENTIN MD
--- NOTE | 2019-06-30 16:09 | PN ---
Teaching Attending Note Name of Resident: Viry Claire ATTENDING PHYSICIAN STATEMENT I saw and evaluated the patient. I reviewed the resident's note and discussed the case with the resident. I agree with the resident's findings and plan as documented. SUBJECTIVE: no fever or chills. No MORENO. has pain in her right hand. daughter report memory problems since the daughter in Oct , and request a neurology eval . she feels her hand is better and erythema on arm has resolved. denies depression but feels sad OBJECTIVE: NAD CV: RRR Lungs: CTAB Ext : No edema or erythema on LE . R hand with erythema and edema dorsally and ventrally. no erythema on fore arm. punctuate wound on R index finger. and possible collection on mid phalanx of middle finger. inability to make a full fist or to fully extend the fingers. L hand with punctuate wound on middle finger , no drainage or erythema No LAP in axilary areas ASSESSMENT AND PLAN: 73 y/o lady with no significant PMH who presented with R hand erythema and edema and was found tohave R hand cellulitis 1- R hand cellulitis and lymphangitis : improved on Abx - cont zosyn per ID - Consulted Dr. Sanabria he is unavailable to see patient. spoke to Dr. Russell office, staff indicated he is not available to speak to MD. I will try to call Dr. BEAL to evaluate the patient - blood cx pending 2- chronic memory difficulty: - check B12, TSH, RPR. - patient's daughter request inpatient neuro eval. 3- DVT PX : lovenox
--- NOTE | 2019-06-30 17:09 | PN ---
Physical Exam: SUBJECTIVE: Patient seen and examined at the bedside, there were no acute events overnight. Patient states she feels the redness in her hand has improved but states that it is still very painful and she cannot extend the fingers of her R hand. OBJECTIVE: Vital Signs Period Temp Pulse Resp BP Sys/Elaine Pulse Ox Last 24 Hr 97.8 F-99.1 F 67-92 16-20 112-150/59-67 99 GENERAL: Awake, alert, and fully oriented, in no acute distress. HEAD: Normal with no signs of trauma. EYES:PERRLA, EOMI, sclera anicteric, conjunctiva clear. EARS, NOSE, THROAT: PERRL, EOMI bilaterally, Moist mucous membranes. NECK: Normal range of motion, supple. LUNGS: Breath sounds equal, clear to auscultation bilaterally. HEART: Regular rate and rhythm, normal S1 and S2 without murmur, rub or gallop. ABDOMEN: Soft, nontender, not distended, normoactive bowel sounds. UPPER EXTREMITIES: 2+ pulses, warm, well-perfused. No peripheral edema. RUE: puncture wound on the palmar surface of the right 2nd finger with swelling and erythema. All fingers on R hand appear swollen, but redness only mild and seems to be decreased (did not previously observe but judging by the fact that the erythema is no longer obviously present on the forearm as noted in previous documentation). Patient also has small puncture wound on L middle finger that is mildly raised and tender however range of motion in the left hand is complete without pain. Th punctate areas on L and R hands have small scabs overlying them. Lymphatic: there were no palpable axial LN LOWER EXTREMITIES: 2+ pulses, warm, well-perfused. No peripheral edema. NEUROLOGICAL: Cranial nerves II-XII intact. Normal speech. Normal gait. PSYCHIATRIC: Cooperative. Good eye contact. Appropriate mood and affect. SKIN: Warm, dry, normal turgor, mild erythema on R hand. Laboratory Results - last 24 hr 06/29/19 06/29/19 06/30/19 21:04 21:04 01:34 WBC 10.4 H RBC 5.27 H Hgb 14.5 Hct 44.1 MCV 83.7 MCH 27.4 MCHC 32.8 RDW 13.5 Plt Count 228 MPV 8.4 Absolute Neuts (auto) 7.5 Neutrophils % 72.4 Lymphocytes % 15.7 D Monocytes % 11.4 H Eosinophils % 0.3 Basophils % 0.2 Nucleated RBC % 0 ESR Sodium 136 Potassium 4.1 Chloride 102 Carbon Dioxide 29 Anion Gap 6 L BUN 15.7 Creatinine 0.8 Est GFR (CKD-EPI)AfAm 84.77 Est GFR (CKD-EPI)NonAf 73.14 Random Glucose 105 Lactic Acid 0.7 Calcium 9.2 Phosphorus 3.1 Magnesium 2.5 H Total Bilirubin 0.5 AST 26 ALT 20 Alkaline Phosphatase 89 C-Reactive Protein Total Protein 7.6 Albumin 4.1 Vitamin B12 TSH RPR Titer 06/30/19 06/30/19 06/30/19 06:45 06:45 06:45 WBC 9.2 RBC 4.89 Hgb 13.6 Hct 41.2 MCV 84.2 MCH 27.8 MCHC 33.0 RDW 13.1 Plt Count 207 MPV 8.9 Absolute Neuts (auto) 6.5 Neutrophils % 70.8 Lymphocytes % 16.8 Monocytes % 11.7 H Eosinophils % 0.4 Basophils % 0.3 Nucleated RBC % 0 ESR Sodium 138 Potassium 4.2 Chloride 107 Carbon Dioxide 26 Anion Gap 6 L BUN 11.8 Creatinine 0.6 Est GFR (CKD-EPI)AfAm 104.80 Est GFR (CKD-EPI)NonAf 90.42 Random Glucose 114 H Lactic Acid Calcium 8.5 Phosphorus 2.5 Magnesium 2.4 Total Bilirubin AST ALT Alkaline Phosphatase C-Reactive Protein 5.9 H Total Protein Albumin Vitamin B12 TSH RPR Titer 06/30/19 06/30/19 06/30/19 06:45 12:34 12:34 WBC RBC Hgb Hct MCV MCH MCHC RDW Plt Count MPV Absolute Neuts (auto) Neutrophils % Lymphocytes % Monocytes % Eosinophils % Basophils % Nucleated RBC % ESR 23 Sodium Potassium Chloride Carbon Dioxide Anion Gap BUN Creatinine Est GFR (CKD-EPI)AfAm Est GFR (CKD-EPI)NonAf Random Glucose Lactic Acid Calcium Phosphorus Magnesium Total Bilirubin AST ALT Alkaline Phosphatase C-Reactive Protein Total Protein Albumin Vitamin B12 557 TSH 0.18 L RPR Titer Nonreactive Active Medications Generic Name Dose Route Start Last Admin Trade Name Freq PRN Reason Stop Dose Admin Enoxaparin Sodium 40 mg 06/30/19 10:00 06/30/19 10:57 Lovenox - SQ 40 mg DAILY BINTA Administration Piperacillin Sod/Tazobactam 50 mls @ 100 mls/hr 06/30/19 12:30 06/30/19 13:30 Sod 3.375 gm/ Dextrose IVPB 100 mls/hr Q8H-IV BINTA Administration Protocol ASSESSMENT/PLAN: Patient is a 73 year old female with no significant past medical history presented to the ED for right 2nd finger swelling, pain and redness after a punctured wound 3 days ago. #Right hand cellulitis -rule out tenosynovitis, septic arthritis - F/U blood cultures -continue zosyn per ID -Xray of the right hand done, reveals only soft tissue swelling - Dr. Sanabria, Dr. Russell, and Dr. Lakhani consulted. Patient's hand needs to be evaluated to assess for need for surgical intervention. -ID (Dr. Figueroa) consulted, appreciate recommendations. #Word finding difficulty - on rounds this morning patient's daughter stated patient has recently been having problems with word finding and memory - ongoing since october - pt daughter requested inpatient neuro eval - will check B12, TSH, RPR #FEN -Not on any standing fluids -electrolytes wnl, routine bmp monitoring -Regular diet #Prophylaxis -Lovenox 40mg sq daily #Disposition -full code -admit to med surg Visit type - Emergency Visit Emergency Visit: Yes ED Registration Date: 06/29/19 Care time: The patient presented to the Emergency Department on the above date and was hospitalized for further evaluation of their emergent condition. - New Patient This patient is new to me today: Yes Date on this admission: 06/30/19 - Critical Care Critical Care patient: No - Discharge Referral Referred to [facility] Med P.C.: No ATTENDING PHYSICIAN STATEMENT I saw and evaluated the patient. I reviewed the resident's note and discussed the case with the resident. I agree with the resident's findings and plan as documented. SUBJECTIVE: OBJECTIVE: ASSESSMENT AND PLAN:
--- NOTE | 2019-06-30 18:30 | CON.ORTH ---
Consult Consult Specialty:: Orthopedics - History of Present Illness Chief Complaint: Right hand swelling History of Present Illness: This is a 73 yo F with no significant PMHx who presented to ED for right hand swelling and pain x 2 days. Patient states she began noticing the symptoms after weeding her home garden. She remembers pricking her right pointer finger at that time. Since then, she has had worsening swelling to the pointer and middle fingers causing them to stay in the flexed position. She notes pain with extension of the index finger. Patient also notes associated warmth and redness to these fingers as well as to her palm that had extended past her wrist at one point. She states her symptoms are improving after receiving antibiotics. She notes one episode of the chills before being seen in the ER. Denies fever, numbness or tingling. Denies any previous injury to this hand. - History Source History Provided By: Patient Limitations to Obtaining History: No Limitations - Past Medical History ...: No - Alcohol/Substance Use Hx Alcohol Use: No - Smoking History Smoking history: Never smoked Have you smoked in the past 12 months: No Home Medications - Allergies Allergies/Adverse Reactions: Allergies Allergy/AdvReac Type Severity Reaction Status Date / Time No Known Allergies Allergy Verified 06/30/19 00:55 - Home Medications Home Medications: Ambulatory Orders NK [No Known Home Medication] 02/09/19 Review of Systems - Review of Systems Musculoskeletal: reports: Other (Swelling, redness and pain to right hand) Physical Exam for Ortho Vital Signs: Vital Signs Temperature 98.6 F 06/30/19 14:46 Pulse Rate 78 06/30/19 14:46 Respiratory Rate 20 06/30/19 14:46 Blood Pressure 124/67 06/30/19 14:46 O2 Sat by Pulse Oximetry (%) 99 06/29/19 20:35 Labs: CBC, BMP 06/30/19 06:45 06/30/19 06:45 - Upper Extremity Hand: Yes: Right (Sigificant swelling to index finger causing a sausage-digit deformity. Mild swelling to middle finger. Diffuse erythema and increased warmth to index finger and middle finger extending to palmar and dorsal aspect of hand. Pain with passive extension of index finger. Decreased painless passive extension of middle finger. Tederness to palpation of flexor tendon sheeth of index finger. Tenderess over palmar aspect. ) Imaging - Results X-ray: Report Reviewed, Image Reviewed (XR of right hand shows no acute pathology.) Problem List - Problems (1) Flexor tenosynovitis of finger Code(s): M65.9 - SYNOVITIS AND TENOSYNOVITIS, UNSPECIFIED Assessment/Plan This is a 73 yo F with no significant PMHx who presented to ED for right hand swelling and pain x 2 days after weeding her home garden. Patient's symptoms and physical exam are significant for sausage-digit deformity of index finger with tenderness along flexor tendon sheath, pain with passive extension, increased warmth and erythema. -Clinical evaluation and pictures reviewed with my attending, Dr. Lakhani -Patient's PE shows classic Kan[place] signs suggestive of flexor tenosynovitis -Recommend stat hand consult -If unable to get hand consult at [facility], recommend stat transfer for probable surgical intervention
[2019-06-30 19:31] LABS: PH,URINE 5.5 (5.0-8.0); URINE APPEARANCE Clear; URINE BILIRUBIN Negative (NEGATIVE); URINE COLOR Yellow; URINE GLUCOSE (UA) Negative (NEGATIVE); URINE KETONE Negative (NEGATIVE); URINE LEUK ESTERASE 1+ (NEGATIVE); URINE NITRITE Negative (NEGATIVE); URINE PROTEIN Negative (NEGATIVE); URINE UROBILINOGEN 0.2 mg/dL (0.2-1.0)
[2019-06-30 19:37] LABS: EPI CELLS 2.5 /HPF (0-5/HPF); HYALINE CASTS 1.86 /lpf (0-8); URINE BACTERIA 0.5 /hpf (NEGATIVE); URINE WBC 27.5 /hpf (0-5)
--- NOTE | 2019-06-30 19:43 | HOSP ---
Subjective - Review of Symptoms Events since last encounter: spoke to SHILPA cortez . she recommended urgent evaluation by hand sx fro suspected tenosynovitis. Spoke to Dr. Gonzalez from medicine service in [facility]. Also with Dr. Randhawa , form elvi s. the patietn is accepted to transfer to ER, [facility] dr. Gonzalez service. patient is agreeable to transfer. paperwork filled. she will leave tonight Physical Examination Vital Signs: Vital Signs Temperature 99.9 F H 06/30/19 18:00 Pulse Rate 77 06/30/19 18:00 Respiratory Rate 20 06/30/19 18:00 Blood Pressure 142/68 06/30/19 18:00 O2 Sat by Pulse Oximetry (%) 99 06/29/19 20:35 Labs: CBC, BMP 06/30/19 06:45 06/30/19 06:45
[2019-06-30 21:04] VITALS: BP 145/75; PULSE 86; TEMP 98.9
--- NOTE | 2019-07-02 20:50 | DS ---
Physical Exam: SUBJECTIVE: Patient seen and examined at the bedside, there were no acute events and patient states she thinks she is improving. Per the surgical PA, it was recommended that the patient have urgent evaluation by a hand surgeon for suspected tenosynovitis. The patient will be transferred to [facility] for further evaluation. OBJECTIVE: Vital Signs Temperature 99.9 F H 06/30/19 18:00 Pulse Rate 77 06/30/19 18:00 Respiratory Rate 20 06/30/19 18:00 Blood Pressure 142/68 06/30/19 18:00 O2 Sat by Pulse Oximetry (%) 99 06/29/19 20:35 CBC, BMP 06/30/19 06:45 06/30/19 06:45 PHYSICAL EXAM GENERAL: Awake, alert, and fully oriented, in no acute distress. HEAD: Normal with no signs of trauma. EYES:PERRLA, EOMI, sclera anicteric, conjunctiva clear. EARS, NOSE, THROAT: PERRL, EOMI bilaterally, Moist mucous membranes. NECK: Normal range of motion, supple. LUNGS: Breath sounds equal, clear to auscultation bilaterally. HEART: Regular rate and rhythm, normal S1 and S2 without murmur, rub or gallop. ABDOMEN: Soft, nontender, not distended, normoactive bowel sounds. UPPER EXTREMITIES: 2+ pulses, warm, well-perfused. No peripheral edema. RUE: puncture wound on the palmar surface of the right 2nd finger with swelling and erythema. All fingers on R hand appear swollen, but redness only mild and seems to be decreased (did not previously observe but judging by the fact that the erythema is no longer obviously present on the forearm as noted in previous documentation). Patient also has small puncture wound on L middle finger that is mildly raised and tender however range of motion in the left hand is complete without pain. Th punctate areas on L and R hands have small scabs overlying them. Lymphatic: there were no palpable axial LN LOWER EXTREMITIES: 2+ pulses, warm, well-perfused. No peripheral edema. NEUROLOGICAL: Cranial nerves II-XII intact. Normal speech. Normal gait. PSYCHIATRIC: Cooperative. Good eye contact. Appropriate mood and affect. SKIN: Warm, dry, normal turgor, mild erythema on R hand. Microbiology 06/30/19 18:15 Urine Culture - Final Urine - Urine Clean Catch NO GROWTH OBTAINED 06/29/19 21:04 Blood Culture - Preliminary Blood - Peripheral Venous Pending Organism 06/29/19 21:04 Blood Culture - Preliminary Blood - Peripheral Venous NO GROWTH OBTAINED AFTER 48 HOURS, INCUBATION TO CONTINUE FOR 3 DAYS. HOSPITAL COURSE: Date of Admission:06/29/19 Ms. Pardo was admitted on June 29 2019 for workup of a painful red and swollen right hand 2/2 a puncture wound she received while gardening. Prior to hospitalization the area of redness had spread up her arm towards her forearm. Her workup in the hospital included cultures, which did not grow anything during her stay, and a hand x-ray which showed soft tissue swelling but no pockets of area or suspicious areas for osteomylitis. Because the patient's hand remained swollen, and because she was unable to extend her fingers due to shooting pain that went up her arm we were suspicious for tenosynovitis. We spoke to the surgical PA who recommended urgent evaluation by a hand surgeon. The patient was accepted to transfer to ER at [facility] under the care of Dr. Gonzalez. She was discharged on 06/30/2019. Date of Discharge: 06/30/19 Minutes to complete discharge: 40 Discharge Summary Reason For Visit: CELLULITIS,LYMPHANGITIS Condition: Stable - Instructions Disposition: TRANSFER ACUTE CARE/OTHER HOSP - Home Medications Comprehensive Discharge Medication List: Ambulatory Orders NK [No Known Home Medication] 02/09/19 This patient is new to me today: No Emergency Visit: Yes ED Registration Date: 06/29/19 Care time: The patient presented to the Emergency Department on the above date and was hospitalized for further evaluation of their emergent condition. Critical Care patient: No - Discharge Referral Referred to [facility] Med P.C.: No ATTENDING PHYSICIAN STATEMENT I saw and evaluated the patient. I reviewed the resident's note and discussed the case with the resident. I agree with the resident's findings and plan as documented. SUBJECTIVE: OBJECTIVE: ASSESSMENT AND PLAN:
== END 2019-06-30 21:43 | disposition short-term general hospital (02) | DRG 558 ==
LOC: JER 20:22 → JERBED 22:08 → J5S 06-30 01:36
PROVIDERS: ADMIT Internal Medicine; ATTEND Internal Medicine
DX: M65.9 Synovitis and tenosynovitis, unspecified (principal); L03.119 Cellulitis of unspecified part of limb; F06.8 Other specified mental disorders due to known physiological condition
CPT/HCPCS: 36415; 73130-TC-RT-FY; 80048; 80053; 81003; 82607; 83605; 83735; 84100; 84439; 84443; 85025; 85651; 86140; 86593; 87040; 87077; 87086; 90670; 93005; 93010; 99285-25; J7030

== ENCOUNTER 2023-07-29 20:15 | Observation (INO) | payer OTHER, BC ==
[2023-07-29 21:37] LABS: BASO % 0.3 % (0-2.0); EOS % 0.1 % (0-4.5); HEMATOCRIT 39.2 % (32.4-45.2); HEMOGLOBIN 12.9 GM/dL (10.7-15.3); LYMPH % 10.8 % (8-40); MCHC 32.9 g/dl (32.0-36.0); MEAN CELL VOLUME 85.2 fl (80-96); MEAN PLT VOLUME 8.1 fl (7.5-11.1); MONO % 10.9 % (3.8-10.2); NEUT % 77.9 % (42.8-82.8); PLATELET COUNT 245 10^3/uL (134-434); RBC 4.61 M/mm3 (3.60-5.2); RDW 12.4 % (11.6-15.6); WHITE BLOOD COUNT 8.9 K/mm3 (4.0-10.0)
[2023-07-29 21:46] LABS: INR 1.19 (0.83-1.09); PROTHROMBIN TIME (PATIENT) 13.8 SEC (9.7-13.0)
[2023-07-29 21:49] LABS: ACTIVATED PTT 30.4 SECONDS (25.2-36.5)
[2023-07-29 21:55] LABS: POTASSIUM 3.9 mmol/L (3.5-5.1)
[2023-07-29 21:57] LABS: CALCIUM 8.4 mg/dL (8.5-10.1)
[2023-07-29 21:58] LABS: ALBUMIN 3.3 g/dl (3.4-5.0); BLOOD UREA NITROGEN 24.3 mg/dL (7-18); MAGNESIUM 2.3 mg/dL (1.8-2.4)
[2023-07-29 22:01] LABS: CREATININE 0.8 mg/dL (0.55-1.3)
[2023-07-29 22:02] LABS: BILIRUBIN,TOTAL 0.5 mg/dL (0.2-1); TOT PROT 6.4 g/dl (6.4-8.2)
[2023-07-29 22:19] LABS: PH,URINE 5.5 (5.0-8.0); URINE APPEARANCE CLEAR; URINE BILIRUBIN NEGATIVE (NEGATIVE); URINE COLOR YELLOW; URINE GLUCOSE (UA) NEGATIVE (NEGATIVE); URINE KETONE 1+ (NEGATIVE); URINE LEUK ESTERASE NEGATIVE (NEGATIVE); URINE NITRITE NEGATIVE (NEGATIVE); URINE PROTEIN NEGATIVE (NEGATIVE); URINE UROBILINOGEN 0.2 mg/dL (0.2-1.0)
[2023-07-29] MEDS ORDERED: LACTATED RINGERS SOLUTION 1000 ML INFUS.BAG IV ONE (22:36)
[2023-07-30] MEDS ORDERED: ASPIRIN 81 MG CHEWABLE TABLETS PO ONE (02:03)
[2023-07-30] MEDS ORDERED: ASPIRIN 81 MG CHEWABLE TABLETS ONE (02:28)
[2023-07-30] MEDS ORDERED: SODIUM CHLORIDE 1,000 ML IV SCH (09:00)
[2023-07-30] MEDS: ENOXAPARIN NA (PORCINE) 40 MG/0.4 ML DISP.SYRIN SQ SCH (10:42)
[2023-07-30] MEDS: PATIENT'S OWN MEDICATION (NON-FORMULARY) (Donepezil Hcl [Donepezil Hcl] 23 MG Tablet) PO SCH (10:43)
[2023-07-30 12:58] LABS: HEMATOCRIT 37.1 % (32.4-45.2); HEMOGLOBIN 12.6 GM/dL (10.7-15.3); MCH 28.2 pg (25.7-33.7); MCHC 33.9 g/dl (32.0-36.0); MEAN CELL VOLUME 83.4 fl (80-96); MEAN PLT VOLUME 8.1 fl (7.5-11.1); PLATELET COUNT 247 10^3/uL (134-434); RBC 4.45 M/mm3 (3.60-5.2); RDW 12.8 % (11.6-15.6)
[2023-07-30 13:15] LABS: POTASSIUM 3.8 mmol/L (3.5-5.1)
[2023-07-30 13:29] LABS: CHOLESTEROL 162 mg/dL (50-200); LDL CHOLESTEROL (ONLY SJRH) 90 mg/dL (5-100)
[2023-07-30 13:30] LABS: HDL CHOLESTEROL 65 mg/dL (40-60)
[2023-07-30 13:45] LABS: BLOOD UREA NITROGEN 16.4 mg/dL (7-18); CALCIUM 8.3 mg/dL (8.5-10.1); MAGNESIUM 2.3 mg/dL (1.8-2.4)
[2023-07-30 13:48] LABS: CREATININE 0.7 mg/dL (0.55-1.3); PHOSPHOROUS 2.8 mg/dL (2.5-4.9)
[2023-07-30 13:50] LABS: BILIRUBIN,TOTAL 0.5 mg/dL (0.2-1); TOT PROT 5.9 g/dl (6.4-8.2)
[2023-07-30] MEDS ORDERED: ATORVASTATIN CA 40 MG TABLET (FP) PO SCH (22:00)
[2023-07-31 00:30] VITALS: BMI 24.9
[2023-07-31] MEDS ORDERED: SODIUM CHLORIDE 1,000 ML IV SCH ×2 (08:00→16:53)
[2023-07-31 09:20] LABS: BASO % 0.6 % (0-2.0); EOS % 0.8 % (0-4.5); HEMATOCRIT 39.1 % (32.4-45.2); HEMOGLOBIN 12.8 GM/dL (10.7-15.3); LYMPH % 30.1 % (8-40); MCH 27.9 pg (25.7-33.7); MCHC 32.7 g/dl (32.0-36.0); MEAN CELL VOLUME 85.1 fl (80-96); MEAN PLT VOLUME 8.2 fl (7.5-11.1); MONO % 10.4 % (3.8-10.2); NEUT % 58.1 % (42.8-82.8); PLATELET COUNT 218 10^3/uL (134-434); RBC 4.59 M/mm3 (3.60-5.2); RDW 12.8 % (11.6-15.6)
[2023-07-31 09:39] LABS: POTASSIUM 3.7 mmol/L (3.5-5.1)
[2023-07-31 09:41] LABS: ALBUMIN 2.8 g/dl (3.4-5.0); BLOOD UREA NITROGEN 12.2 mg/dL (7-18); CALCIUM 8.1 mg/dL (8.5-10.1)
[2023-07-31 09:44] LABS: CREATININE 0.6 mg/dL (0.55-1.3)
[2023-07-31 09:46] LABS: BILIRUBIN,TOTAL 0.4 mg/dL (0.2-1); TOT PROT 5.6 g/dl (6.4-8.2)
[2023-07-31] MEDS: ENOXAPARIN NA (PORCINE) 40 MG/0.4 ML DISP.SYRIN SQ SCH (10:14)
[2023-07-31 14:28] VITALS: RESP 18
[2023-07-31] MEDS: PATIENT'S OWN MEDICATION (NON-FORMULARY) (Donepezil Hcl [Donepezil Hcl] 23 MG Tablet) PO SCH (17:01)
[2023-07-31] MEDS: DONEPEZIL HCL 10 MG TABLET (FP) PO SCH (21:31)
[2023-08-01] MEDS: ENOXAPARIN NA (PORCINE) 40 MG/0.4 ML DISP.SYRIN SQ SCH (09:46)
[2023-08-01 09:59] LABS: POTASSIUM 3.5 mmol/L (3.5-5.1)
[2023-08-01 10:03] LABS: ALBUMIN 3.2 g/dl (3.4-5.0); BLOOD UREA NITROGEN 9.2 mg/dL (7-18); CALCIUM 8.5 mg/dL (8.5-10.1)
[2023-08-01 10:04] LABS: HEMOGLOBIN 15.4 GM/dL (10.7-15.3); MCH 28.9 pg (25.7-33.7); MCHC 34.9 g/dl (32.0-36.0); MEAN PLT VOLUME 8.9 fl (7.5-11.1); PLATELET COUNT 235 10^3/uL (134-434); RDW 12.7 % (11.6-15.6)
[2023-08-01 10:06] LABS: CREATININE 0.5 mg/dL (0.55-1.3); PHOSPHOROUS 2.7 mg/dL (2.5-4.9)
[2023-08-01 10:08] LABS: BILIRUBIN,TOTAL 0.6 mg/dL (0.2-1); TOT PROT 6.4 g/dl (6.4-8.2)
[2023-08-01] MEDS: DONEPEZIL HCL 10 MG TABLET (FP) PO SCH (21:19)
[2023-08-02 09:53] LABS: HEMATOCRIT 41.3 % (32.4-45.2); HEMOGLOBIN 13.8 GM/dL (10.7-15.3); MCH 28.3 pg (25.7-33.7); MCHC 33.5 g/dl (32.0-36.0); MEAN CELL VOLUME 84.5 fl (80-96); MEAN PLT VOLUME 8.4 fl (7.5-11.1); PLATELET COUNT 243 10^3/uL (134-434); RBC 4.88 M/mm3 (3.60-5.2); RDW 12.6 % (11.6-15.6); WHITE BLOOD COUNT 6.9 K/mm3 (4.0-10.0)
[2023-08-02] MEDS: ENOXAPARIN NA (PORCINE) 40 MG/0.4 ML DISP.SYRIN SQ SCH (09:58)
[2023-08-02 10:11] LABS: CALCIUM 8.4 mg/dL (8.5-10.1)
[2023-08-02 10:12] LABS: ALBUMIN 2.8 g/dl (3.4-5.0); BLOOD UREA NITROGEN 13.1 mg/dL (7-18); MAGNESIUM 2.1 mg/dL (1.8-2.4)
[2023-08-02 10:15] LABS: CREATININE 0.7 mg/dL (0.55-1.3); PHOSPHOROUS 3.4 mg/dL (2.5-4.9)
[2023-08-02 10:16] LABS: BILIRUBIN,TOTAL 0.4 mg/dL (0.2-1)
[2023-08-02 16:10] VITALS: BP 110/57; PULSE 69; TEMP 96.9
== END 2023-08-02 16:47 | disposition home or self-care (01) ==
LOC: JER 20:15 → JERBED 23:57 → J6S 07-30 21:14
PROVIDERS: ADMIT Internal Medicine; ATTEND Internal Medicine
PROC: 3E023GC Introduction of Other Therapeutic Substance into Muscle, Percutaneous Approach (ICD-10-PCS; principal; 2023-07-29)
PROC: 3E0337Z Introduction of Electrolytic and Water Balance Substance into Peripheral Vein, Percutaneous Approach (ICD-10-PCS; 2023-07-29)
DX: I95.9 Hypotension, unspecified (principal); F02.80 Dementia in other diseases classified elsewhere, unspecified severity, without behavioral disturbance, psychotic disturbance, mood disturbance, and anxiety; I10 Essential (primary) hypertension; G30.1 Alzheimer's disease with late onset; W18.39XA Other fall on same level, initial encounter; Y93.89 Activity, other specified; Y92.009 Unspecified place in unspecified non-institutional (private) residence as the place of occurrence of the external cause; R77.8 Other specified abnormalities of plasma proteins; M62.81 Muscle weakness (generalized); M62.82 Rhabdomyolysis; R26.2 Difficulty in walking, not elsewhere classified; R29.2 Abnormal reflex; F05 Delirium due to known physiological condition; Z71.89 Other specified counseling; L03.113 Cellulitis of right upper limb
CPT/HCPCS: 0241U-QW; 36415; 70450-TC; 70551-TC; 71045-TC-FY; 72125-TC; 72170-TC-FY; 80053; 80061; 81003; 82550; 82553; 82607; 82746; 83735; 84100; 84439; 84443; 84481; 84484; 85025; 85027; 85610; 85730; 87086; 93005; 93010; 93306-TC; 93970-TC; 96360; 96361; 96372; 97116-GP; 97161-GP; 99285-25; G0378